=== PATIENT | female | born 1980 | race Caucasian/White ===

== ENCOUNTER → 2018-09-12 | Outpatient (CLI) | payer OTHER ==
--- NOTE | ~2018-09-12 | PATH ---
[facility] [address] [place] [address] PATHOLOGY RPT PROCEDURE Name: ANTONIA CARDONA Room #: REG EMBER M..#: [id number] Admission: 09/12/18 Date of : 78 Discharge: Report #: [id number] Path Case #: [id number] Note [facility] Accession Number: [id number] TESTS RESULT FLAG UNITS REF RANGE LAB Clinician Provided Cytology Information No. of containers..01 Other (Miscellaneous) Source: RT THYROID DIAGNOSIS: 02 RIGHT THYROID, FINE NEEDLE ASPIRATION NEGATIVE FOR MALIGNANT CELLS. BETHESDA CATEGORY II. SPECIMEN CONSISTS OF FOLLICULAR CELLS, HEMOSIDERIN-LADEN MACROPHAGES, COLLOID, AND BLOOD. 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 THIS INTERPRETATION INCLUDES EVALUATION OF A CELL BLOCK. NEGATIVE FOR NUCLEAR FEATURES OF PAPILLARY THYROID CARCINOMA. Comment: Examination shows microfollicles, macrofollicles, dense colloid, macrophages and a few inflammatory cells. 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 Nature of this sample precludes exclusion of a carcinoma.Please note sample may not be independent sales representative. Correlate clinically and follow-up as indicated. Pathologist ICD10: 02 E04.1 Signed out by: Danette Dawn MD, Pathologist NPI- [id number] Performed by: Sean Kulkarni, Contact Assembler (ASCP) Gross description: 01 20ML, PINK, CLOUDY /LCS FLAG LEGEND: L-Low Normal,H-High Normal,LL-Alert Low,HH-Alert High <-Panic Low,>-Panic High,A-Abnormal,AA-Critical Abnormal Performed at: [facility] [address] [place] [address] [address] [place] [address] Lowell Mckenzie MD, [address] [facility] [address] Danette aDwn MD, Specimen Comment: A courtesy copy of this report has been sent to [address] [address] PATHOLOGY RPT PROCEDURE Name: MIRAVAISHALIADALBERTOANTONIA Room #: REG EMBER Schwartz#: [id number] Admission: 09/12/18 Date of : 78 Discharge: Report #: [id number] Path Case #: [id number] Specimen Comment: [phone]. Specimen Comment: Report sent to Performed at: [address], [place], [place] [id number] MD Lowell Mckenzie MD Phone: [phone]
--- NOTE | ~2018-09-12 | PATH ---
[facility] [address] [place] [address] PATHOLOGY RPT PROCEDURE Name: ANTONIA CARDONA Room #: REG [facility] M..#: [id number] Admission: 09/12/18 Date of : 78 Discharge: Report #: [id number] Path Case #: [id number] Note [facility] Accession Number: [id number] TESTS RESULT FLAG UNITS REF RANGE LAB Clinician Provided Cytology Information No. of containers..01 Other (Miscellaneous) Source: THYROID DIAGNOSIS: 02 LEFT THYROID, FINE NEEDLE ASPIRATION NEGATIVE FOR MALIGNANT CELLS. BETHESDA CATEGORY II. SPECIMEN CONSISTS OF FOLLICULAR CELLS, HEMOSIDERIN-LADEN MACROPHAGES, COLLOID, AND BLOOD. 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 THIS INTERPRETATION INCLUDES EVALUATION OF A CELL BLOCK. NEGATIVE FOR NUCLEAR FEATURES OF PAPILLARY THYROID CARCINOMA. Comment: The thin prep smear shows abundant macrofollicles, macrophages, few inflammatory cells and colloid. Findings are suggestive of an adenomatoid nodule. Please note sample may not be entirey contact center representative. Correlate clinically and follow-up as indicated. Pathologist ICD10: 02 E04.1 Signed out by: Danette Dawn MD, Pathologist NPI- [id number] Performed by: Sean Kulkarni, Continuous Towel Roller ([facility]) Gross description: 01 20ML, PINK, CLOUDY /LCS FLAG LEGEND: L-Low Normal,H-High Normal,LL-Alert Low,HH-Alert High <-Panic Low,>-Panic High,A-Abnormal,AA-Critical Abnormal Performed at: 01 [facility] [address] [place] [address] Lowell Mckenzie MD, [address] [address] Danette Dawn MD, Specimen Comment: A courtesy copy of this report has been sent to Specimen Comment: [phone]. [address] [address] PATHOLOGY RPT PROCEDURE Name: ANTONIA CARDONA Room #: REG EMBER Schwartz#: [id number] Admission: 09/12/18 Date of : 78 Discharge: Report #: [id number] Path Case #: [id number] Specimen Comment: Report sent to Performed at: [address], [place], [place] [id number] MD Lowell Mckenzie MD Phone: [phone]
== END | disposition home or self-care (01) ==
LOC: ULTRA 08:35
DX: E04.1 Nontoxic single thyroid nodule (principal); Z91.041 Radiographic dye allergy status